=== PATIENT | male | born 1955 | race Caucasian/White ===

== ENCOUNTER → 2018-05-21 | Outpatient (CLI) | payer OTHER, BC ==
[~2018-05-21] MED LIST: ACETAMINOPHEN-1 EAC1 OR; ACETAMINOPHEN325 M1 PO; ALDACTONE100 MG PO; ALDACTONE25 MG PO; ASPIRIN EC81 M1 PO; BYSTOLIC10 MG PO; CARISOPRODOL 3350 MG PO; CEFTRIAXONE2 GM IVPB; CLEOCIN HCL300 MG PO; CLONIDINE PO; COLACE 100 MG100 MG PO; COLACE50 MG; CYMBALTA30 MG PO; DEMADEX10 MG PO; DEMADEX20 MG PO; DEMADEX5 MG; FISH OIL 1,001000 M2 PO; FISHOIL PO; FLOMAX PO; FOLIC ACID1 MG PO; HUMALOG100 UNIT/1 SUBQ; HUMALOG100 UNIT/2 SQ; HYDRALAZINE 5050 MG PO; IBUPROFEN 800800 M1 OR; IMDUR 30 MG TAB30 M1 PO; IRON PO; LANTUS; LANTUS100 UNIT/M SUBQ; LASIX 80 MG TAB80 MG OR; LISINOPRIL40 MG PO; LOPRESSOR25 OR; METAMUCIL PAC1 UDPKT PO; MIRALAX17 GM PO; MORPHINE SULFAT30 M5 PO; NEPHROCAPS SOFT1 CAP OR; NORCO 5-325 TA1 EACH PO; OXYCODONE; OXYCODONE HCL 55 MG PO; OXYCODONE HCL10 MG PO; PANTOPRAZOLE SO40 M1 PO; PERCOCET 10-321 EACH; PERCOCET 10-321 EACH PO; PERCOCET 5-3251 EACH PO; PHISOHEX148 ML; PREDNISONE 20 M20 M1; REGLAN 10 MG TA10 MG PO; SENNA PLUS TAB1 EACH PO; SODIUM BICARBO650 M3 PO; STOOL SOFTENER1 EACH PO; THERA-M CAPLET1 EACH PO; TOPROL XL50 MG PO; TYLENOL325 MG PO; VALTURNA 300-31 EACH OR; VITAMIN D1000 UNI2 PO; ZOCOR40 MG PO; ZOFRAN ODT4 MG PO
== END ==
LOC: NUC 06:56
DX: I25.10 Atherosclerotic heart disease of native coronary artery without angina pectoris (principal)